=== PATIENT | male | born 1970 | race Caucasian/White ===

== ENCOUNTER 2018-10-27 07:54 | Day surgery (SDC) | END 2018-10-27 12:40 | disposition home or self-care (01) ==

== ENCOUNTER 2019-06-22 16:27 | Emergency (ER) | payer BC ==
[~2019-06-22] VITALS: Ht 177.8 cm; Wt 81.0 kg
[2019-06-22 16:33] VITALS: Ht 177.8 cm; Wt 81.0 kg
[2019-06-22] MEDS ORDERED: KETOROLAC 30 MG INJ IM STA (17:00)
[2019-06-22] MEDS ORDERED: HYDROCODONE/APAP (10/325) TAB PO ONE (17:00)
--- NOTE | 2019-06-22 17:27 | ERD ---
ER Documentation Chief Complaint Chief Complaint pt c/o lower back pain that radiates bilateral lower extremities x 1 day HPI Patient is a 49-year-old male with history of 6 mm bulging disc in the cervical spine and 4 mm bulging disc in the lower lumbar spine. Patient is presenting to the ED for back pain and urinary retention x2 days. 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 Since then he has had difficulty ambulating. Patient states he has urinary incontinence and has to force his self to urinate. Patient states he is only able to pass small amount of urinates more drooling than an actual stream. She has never had these urinary symptoms before. Patient is also stating that when he was in the shower he could not feel the hot water on his feet. The patient became concerned and that is why he is here in the ER now. Patient denies any allergies to medications. The patient states he has no pacemakers, ICD or any other contraindications for MRI. ROS All systems reviewed and are negative except as per history of present illness. Medications Home Meds No Active Prescriptions or Reported Meds Allergies Allergies: Coded Allergies: No Known Allergy (Unverified , 10/27/18) PMhx/Soc History of Surgery: No Anesthesia Reaction: No Hx Neurological Disorder: No Hx Respiratory Disorders: Yes (lung nodule) Hx Cardiac Disorders: No Hx Psychiatric Problems: No Hx Miscellaneous Medical Probl: No Hx Alcohol Use: No Hx Substance Use: No Hx Tobacco Use: No Smoking Status: Never smoker FmHx Family History: No diabetes, No coronary disease, No other Physical Exam Vitals Vital Signs Date Temp Pulse Resp B/P (MAP) Pulse Ox O2 O2 Flow FiO2 Time Delivery Rate 06/22/19 98.3 76 16 122/69 99 16:33 (86) Physical Exam GENERAL: Moderate distress HEENT: Atraumatic. Conjunctivae are pink. Pupils equal, round, and reactive to light. There is no scleral icterus. Tympanic membranes clear bilaterally. Oropharynx clear. No nystagmus or photophobia. NECK: C-spine is soft and supple. There is no meningismus. There is no cervical lymphadenopathy. CHEST: Clear to auscultation bilaterally. There are no rales, wheezes or rhonchi. HEART: Regular rate and rhythm. No murmurs, clicks, rubs or gallops. ABDOMEN:Soft, nontender and nondistended. Good bowel sounds. No rebound or guarding. No gross peritonitis. No gross organomegaly or masses. No Flores sign or McBurney point tenderness. BACK: No midline or flank tenderness. EXTREMITIES: Equal pulses bilaterally. There is no peripheral clubbing, cyan osis or edema. No focal swelling or erythema. Full range of motion. Grossly neurovascularly intact. NEUROLOGIC: Bilateral paresthesia in lower extremities Result Diagram: 06/22/19 1729 06/22/19 1729 Results 24 hrs Laboratory Tests Test 06/22/19 17:29 White Blood Count 6.6 10^3/ul Red Blood Count 5.83 10^6/ul Hemoglobin 12.1 g/dl Hematocrit 39.4 % Mean Corpuscular Volume 67.6 fl Mean Corpuscular Hemoglobin 20.8 pg Mean Corpuscular Hemoglobin Concent 30.7 g/dl Red Cell Distribution Width 14.9 % Platelet Count 226 10^3/UL Mean Platelet Volume 10.2 fl Immature Granulocytes % 0.200 % Neutrophils % 53.2 % Lymphocytes % 28.2 % Monocytes % 9.8 % Eosinophils % 7.7 % Basophils % 0.9 % Nucleated Red Blood Cells % 0.0 /100WBC Immature Granulocytes # 0.010 10^3/ul Neutrophils # 3.5 10^3/ul Lymphocytes # 1.9 10^3/ul Monocytes # 0.7 10^3/ul Eosinophils # 0.5 10^3/ul Basophils # 0.1 10^3/ul Nucleated Red Blood Cells # 0.0 10^3/ul Sodium Level 143 mmol/L Potassium Level 3.9 mmol/L Chloride Level 111 mmol/L Carbon Dioxide Level 24 mmol/L Anion Gap 8 Blood Urea Nitrogen 20 mg/dl Creatinine 0.83 mg/dl Est Glomerular Filtrat Rate mL/min > 60 mL/min Glucose Level 90 mg/dl Calcium Level 9.3 mg/dl Current Medications Medications Dose Sig/Karlene Start Time Status Last (Trade) Ordered Route PRN Stop Time Admin Dose Reason Admin 1 tab ONCE ONCE 06/22/19 DC 06/22/19 Acetaminophen PO 17:00 17:07 / 06/22/19 17:01 Hydrocodone Bitart ([place] (10/325)) Ketorolac 30 mg ONCE STAT 06/22/19 DC 06/22/19 Tromethamine IM 17:00 17:07 (Toradol) 06/22/19 17:01 Morphine 4 mg ONCE STAT 06/22/19 DC 06/22/19 Sulfate IV 19:08 19:18 (morphine) 06/22/19 19:09 Morphine 4 mg ONCE STAT 06/22/19 DC 06/22/19 Sulfate IV 21:30 21:35 (morphine) 06/22/19 21:31 Morphine 4 mg ONCE STAT 06/22/19 DC 06/22/19 Sulfate IV 23:17 23:37 (morphine) 06/22/19 23:18 0.5 mg ONCE STAT 06/23/19 DC 06/23/19 Hydromorphone IV 00:08 00:26 HCl 06/23/19 00:19 (Dilaudid) Procedures/MDM ED course: The patient was stable throughout the ED course. The patient and/or family informed of laboratory and diagnostic imaging results throughout the ED course. Diagnostic imaging: MRI Read by radiologist Maria Elena Mortensen, Physician PROCEDURE: MR LUMBAR SPINE WITH AND WITHOUT CONTRAST CLINICAL INDICATION: 49-year-old male. Urinary incontinence. TECHNIQUE: Multiplanar multi-sequence images of the lumbar contrast without and with contrast. CONTRAST: ProHance 10 cc IV. COMPARISON: None. FINDINGS: T11-T12: Narrowed disc space with dehydration. Diffuse posterior disc extrusion with moderate canal stenosis and encroachment upon the thoracic cord. Focal hyperintense intramedullary lesion at the T11-12 level. Inferior left and right foraminal narrowing. Axial images not obtained through this level. T12 - L1: Disc space height maintained with normal hydration. Posterior annular bulge. Mild canal stenosis. No cord encroachment. No foraminal narrowing. L1 - L2: Disc space height maintained. Mild dehydration. Chronic endplate Schmorl's nodes. Posterior annular fissure with shallow diffuse posterior protrusion. Mild canal stenosis. No foraminal narrowing. L2 - L3: Disc space height maintained. Dehydrated annular fibers. No disc herniation, canal stenosis or foraminal narrowing. L3 - L4: Disc space height maintained. Dehydrated annular fibers. No disc herniation, canal stenosis or foraminal narrowing. L4 - L5: Disc space height maintained. Normal nucleus pulposus hydration. Shallow posterior annular bulge. No significant canal stenosis or foraminal narrowing. Bilateral facet arthrosis. L5 - S1: Disc space height maintained with normal hydration. No disc herniation, canal stenosis or foraminal narrowing. Normal lumbar lordosis. Normal marrow signal. Normal appearing prevertebral and paravertebral soft tissues. Small contrast enhancing hemangioma superior L4 body. IMPRESSION: 1. Diffuse T11-12 posterior disc extrusion with mild cord compression. There is a small focus of hyperintense STIR signal within the cord at the T11-12 level, indicating either a focus of myelomalacia or cord edema. This may represent the etiology of the patient's incontinence. 2. Mild L1-2 canal stenosis. 3. Bilateral L4-5 facet arthrosis. Medications given in ER: K[place]aus Morphine Patient tolerated medication well with no adverse reactions. Patient reported improvement in pain. Medical decision making: Prescription for home: I have discussed with the patient proper use and common side effects to expert with the medication . I advised the patient/family to speak with the pharmacist dispensing the medication to be advised of any potential drug interactions with other medication or supplements they may be taking. Discharge: At this time, patient is stable for discharge and outpatient management. I have instructed the patient to follow-up with his\her primary care physician in 1 to 2 days. I have discussed with the patient the possibility of needing to see a specialist for further work-up and imaging studies if symptoms persist. I have instructed the patient to promptly return to the ER for any new or worsening symptoms including increased pain, fever, nausea, vomiting, weakness or LOC. The patient and\or family expressed understanding of and agreement with this plan. All questions were answered. Home care instructions were provided. Disclaimer: Inadvertent spelling and grammatical errors are likely due to EHR\dictation software use and do not reflect on the overall quality of patient care. Also, please note that the electronic time recorded on the note does not necessarily reflect the actual time of the patient encounter. Departure Diagnosis: Primary Impression: Back pain Back pain location: low back pain Chronicity: chronic Back pain laterality: bilateral Sciatica presence: with sciatica Sciatica laterality: bilateral sciatica Qualified Codes: M54.42 - Lumbago with sciatica, left side; M54.41 - Lumbago with sciatica, right side; G89.29 - Other chronic pain Additional Impressions: Paresthesia of bilateral legs Paresthesia of both feet ANTHONY JOYCE PA-C Jun 22, 2019 17:27
[2019-06-22] MEDS ORDERED: morphine 4 MG/ML VIAL IV STA ×3 (19:08→23:17)
[2019-06-23] MEDS ORDERED: HYDROmorphONE 0.5 MG/0.5 ML SYG IV STA (00:08)
[2019-06-23] MEDS ORDERED: HYDR-3980 PO (04:14)
[2019-06-23] MEDS ORDERED: IBUP-1542 PO (04:15)
--- NOTE | 2019-06-23 04:49 | ERD ---
ER Documentation Chief Complaint Chief Complaint pt c/o lower back pain that radiates bilateral lower extremities x 1 day HPI The patient is a 49-year-old male, presenting to the ER because of acute on chronic low back pain radiating down to bilateral lower extremity today. He stated that he has some trouble urinating seen 12 PM, complains of constipation. He denies fever chills, neck pain, chest pain, dyspnea, abdominal pain, vomiting. He does not smoke or drink, denies any history of IV drug abuse. 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 Medications Home Meds Active Scripts Ibuprofen* (Motrin*) 600 Mg Tab, 600 MG PO Q6H PRN for PAIN AND OR ELEVATED TEMP, #30 TAB Prov:TYESHA HENRIQUEZ MD 06/23/19 Hydrocodone/Acetaminophen ([place] 10-325 Tablet) 1 Each Tablet, 1 TAB PO Q6H PRN for PAIN, #7 TAB Prov:TYESHA HENRIQUEZ MD 06/23/19 Allergies Allergies: Coded Allergies: No Known Allergy (Unverified , 10/27/18) PMhx/Soc History of Surgery: No Anesthesia Reaction: No Hx Neurological Disorder: No Hx Respiratory Disorders: Yes (lung nodule) Hx Cardiac Disorders: No Hx Psychiatric Problems: No Hx Miscellaneous Medical Probl: No Hx Alcohol Use: No Hx Substance Use: No Hx Tobacco Use: No Smoking Status: Never smoker Physical Exam Vitals Vital Signs Date Temp Pulse Resp B/P (MAP) Pulse Ox O2 O2 Flow FiO2 Time Delivery Rate 06/22/19 98.3 76 16 122/69 99 16:33 (86) Physical Exam Const: No acute distress. Head: Atraumatic. Eyes: Normal Conjunctiva. ENT: Normal External Ears, Nose and Mouth. Neck: Full range of motion. No meningismus. Resp: Clear to auscultation bilaterally. Cardio: Regular rate and rhythm. Abd: Soft, non distended urinary bladder, normal bowel sounds, non tender. Skin: No petechiae or rashes. Back: Mild thoracic and lumbar spinal tenderness, no crepitus. Ext: Positive straight leg raising test on bilateral lower extremity Neur: Awake and alert. No focal deficit Psych: Normal Mood and Affect. Result Diagram: 06/22/19 1729 06/22/19 1729 Results 24 hrs Laboratory Tests Test 06/22/19 17:29 White Blood Count 6.6 10^3/ul Red Blood Count 5.83 10^6/ul Hemoglobin 12.1 g/dl Hematocrit 39.4 % Mean Corpuscular Volume 67.6 fl Mean Corpuscular Hemoglobin 20.8 pg Mean Corpuscular Hemoglobin Concent 30.7 g/dl Red Cell Distribution Width 14.9 % Platelet Count 226 10^3/UL Mean Platelet Volume 10.2 fl Immature Granulocytes % 0.200 % Neutrophils % 53.2 % Lymphocytes % 28.2 % Monocytes % 9.8 % Eosinophils % 7.7 % Basophils % 0.9 % Nucleated Red Blood Cells % 0.0 /100WBC Immature Granulocytes # 0.010 10^3/ul Neutrophils # 3.5 10^3/ul Lymphocytes # 1.9 10^3/ul Monocytes # 0.7 10^3/ul Eosinophils # 0.5 10^3/ul Basophils # 0.1 10^3/ul Nucleated Red Blood Cells # 0.0 10^3/ul Sodium Level 143 mmol/L Potassium Level 3.9 mmol/L Chloride Level 111 mmol/L Carbon Dioxide Level 24 mmol/L Anion Gap 8 Blood Urea Nitrogen 20 mg/dl Creatinine 0.83 mg/dl Est Glomerular Filtrat Rate mL/min > 60 mL/min Glucose Level 90 mg/dl Calcium Level 9.3 mg/dl Current Medications Medications Dose Sig/Karlene Start Time Status Last (Trade) Ordered Route PRN Stop Time Admin Dose Reason Admin 1 tab ONCE ONCE 06/22/19 DC 06/22/19 Acetaminophen PO 17:00 17:07 / 06/22/19 17:01 Hydrocodone Bitart ([place] (10/325)) Ketorolac 30 mg ONCE STAT 06/22/19 DC 06/22/19 Tromethamine IM 17:00 17:07 (Toradol) 06/22/19 17:01 Morphine 4 mg ONCE STAT 06/22/19 DC 06/22/19 Sulfate IV 19:08 19:18 (morphine) 06/22/19 19:09 Morphine 4 mg ONCE STAT 06/22/19 DC 06/22/19 Sulfate IV 21:30 21:35 (morphine) 06/22/19 21:31 Morphine 4 mg ONCE STAT 06/22/19 DC 06/22/19 Sulfate IV 23:17 23:37 (morphine) 06/22/19 23:18 0.5 mg ONCE STAT 06/23/19 DC 06/23/19 Hydromorphone IV 00:08 00:26 HCl 06/23/19 00:19 (Dilaudid) Procedures/MDM [place] [id number] Radiology Main Line: [phone] DIAGNOSTIC IMAGING REPORT Patient: JOHAN DIAZ : 1970 Age: 49 Sex: M MR #: [id number] DOS: 06/23/19 0011 Ordering MD: TYESHA HENRIQUEZ MD Location: [facility] Room/Bed: PROCEDURE: MRI THORACIC SPINE WITH AND WITHOUT CONTRAST CLINICAL INDICATION: Incontinence. TECHNIQUE: Multiplanar multi sequence imaging of the thoracic spine without and with contrast. CONTRAST: ProHance 10 cc IV given the 3 hours earlier for an MR lumbar spine exam. COMPARISON: None. FINDINGS: Normal thoracic kyphosis. T2 vertebral body hemangioma. Thoracic vertebral body height maintained. Diffuse posterior T11-12 spur/disc complex with mild to moderate canal stenosis and cord encroachment. Small focus of non-enhancing hyperintense T2 signal is present in the central surface of the cord at the T11- 12 level. T6-T12 disc dehydration. Multiple mid and lower thoracic chronic endplate Schmorl's nodes. The neural foramen are patent at all levels. The paraspinal soft tissues are normal. The postcontrast images demonstrate no abnormal epidural, dural, leptomeningeal or intramedullary enhancement. IMPRESSION: 1. Diffuse T11-12 posterior spur/disc complex resulting in mild to moderate canal stenosis and cord encroachment. 2. Non-enhancing intramedullary lesion in the central cord at T11-12, likely representing myelomalacia. RPTAT: HLRS Physician Nany Date Time Electronically viewed and signed by Physician Nany on 06/23/2019 01:56 RS/ CC: TYESHA HENRIQUEZ MD [id number] [place] [id number] Radiology Main Line: [phone] DIAGNOSTIC IMAGING REPORT Patient: JOHAN DIAZ : 1970 Age: 49 Sex: M MR #: [id number] DOS: 06/22/19 1707 Ordering MD: ANTHONY JOYCE PA-C Location: [facility] Room/Bed: PROCEDURE: MR LUMBAR SPINE WITH AND WITHOUT CONTRAST CLINICAL INDICATION: 49-year-old male. Urinary incontinence. TECHNIQUE: Multiplanar multi-sequence images of the lumbar contrast without and with contrast. CONTRAST: ProHance 10 cc IV. COMPARISON: None. FINDINGS: T11-T12: Narrowed disc space with dehydration. Diffuse posterior disc extrusion with moderate canal stenosis and encroachment upon the thoracic cord. Focal hyperintense intramedullary lesion at the T11-12 level. Inferior left and right foraminal narrowing. Axial images not obtained through this level. T12 - L1: Disc space height maintained with normal hydration. Posterior annular bulge. Mild canal stenosis. No cord encroachment. No foraminal narrowing. L1 - L2: Disc space height maintained. Mild dehydration. Chronic endplate Schmorl's nodes. Posterior annular fissure with shallow diffuse posterior protrusion. Mild canal stenosis. No foraminal narrowing. L2 - L3: Disc space height maintained. Dehydrated annular fibers. No disc herniation, canal stenosis or foraminal narrowing. L3 - L4: Disc space height maintained. Dehydrated annular fibers. No disc herniation, canal stenosis or foraminal narrowing. L4 - L5: Disc space height maintained. Normal nucleus pulposus hydration. Sha llow posterior annular bulge. No significant canal stenosis or foraminal narrowing. Bilateral facet arthrosis. L5 - S1: Disc space height maintained with normal hydration. No disc herniation, canal stenosis or foraminal narrowing. Normal lumbar lordosis. Normal marrow signal. Normal appearing prevertebral and paravertebral soft tissues. Small contrast enhancing hemangioma superior L4 body. IMPRESSION: 1. Diffuse T11-12 posterior disc extrusion with mild cord compression. There is a small focus of hyperintense STIR signal within the cord at the T11-12 level, indicating either a focus of myelomalacia or cord edema. This may represent the etiology of the patient's incontinence. 2. Mild L1-2 canal stenosis. 3. Bilateral L4-5 facet arthrosis. RPTAT: HLRS Physician Nany Date Time Electronically viewed and signed by Maria Elena Mortensen Physician on 06/22/2019 23:24 RS/ CC: ANTHONY JOYCE PA-C [id number] Consultation: I discussed the patient with the neurosurgeon Dr. Willis at 12 am after the lumbar MRI read by radiologist. He personally reviewed the lumbar MRI and requested for the thoracic MRI. I discussed with him again at 3:20 AM after the thoracic MRI was done. He personally revealed the thoracic MRI and did not think the patient require any surgical intervention and recommended to discharge the patient. He would follow-up with the patient in his office in 1 to 2 days MEDICAL MAKING DECISION: The patient is a 49-year-old male, presenting with acute on chronic low back pain with sciatica, gastric and lumbar canal stenosis, anemia The Tai catheter was inserted, he only drain about 75 cc of urine He was treated with [place] 10 mg p.o. and Toradol 30 mg IM initially, then morphine 4 mg IV x3 by the PA who initially saw the patient. He was treated with Dilaudid 0.5 mg IV for pain with good response He is able to ambulate and stable for outpatient follow-up. The neurosurgeon Dr. Willis does not suspect any emergent back problems such as cauda equina syndrome, cord compression, spinal abscess, etc The differential diagnoses considered include but are not limited to caudal equina syndrome, spinal abscess, DJD, diskitis, lumbar radiculopathy. Departure Diagnosis: Primary Impression: Lumbar canal stenosis Additional Impressions: Back pain Back pain location: low back pain Chronicity: chronic Back pain laterality: bilateral Sciatica presence: with sciatica Sciatica laterality: bilateral sciatica Qualified Codes: M54.42 - Lumbago with sciatica, left side; M54.41 - Lumbago with sciatica, right side; G89.29 - Other chronic pain Sciatica Anemia Condition: Good Patient Instructions: Back Pain (Acute Or Chronic) Referrals: DARLENE PEREZ MD Additional Instructions: He was discharged with Jai and Earlene Call Dr Perez TOMORROW for an appointment during the next 1-2 days.See the doctor sooner or return here if your condition worsens before your appointment time. TYESHA HENRIQUEZ MD Jun 23, 2019 04:49
[2019-06-23 05:02] VITALS: BP 124/79; PULSE 63; RESP 19
== END 2019-06-23 05:02 | disposition home or self-care (01) ==
LOC: FTE 16:27
DX: M48.07 Spinal stenosis, lumbosacral region (principal); M54.41 Lumbago with sciatica, right side; D64.9 Anemia, unspecified
CPT/HCPCS: 51702; 72157; 72158; 80048; 85025; 96372; 96374; 96375; 96376; J1170; J1885; J2270; Z7502; Z7610